=== PATIENT | female | born 1995 | race Two or more races ===

== ENCOUNTER 2020-09-09 11:41 | Outpatient (CLI) | payer OTHER | END 2020-09-09 12:12 | disposition home or self-care (01) | LOC: RX STUDY 11:41 → RAD 11:41 → RX STUDY 12:12 | PROVIDERS: ATTEND Surgery | DX: K59.09 Other constipation (principal); R10.32 Left lower quadrant pain ==

== ENCOUNTER 2020-09-17 08:29 | Outpatient (CLI) | payer OTHER | END 2020-09-17 08:47 | disposition HB | LOC: TOM 08:29 | DX: K59.89 Other specified functional intestinal disorders (principal); Z12.11 Encounter for screening for malignant neoplasm of colon ==

== ENCOUNTER 2020-09-30 07:00 | Day surgery (SDC) | payer OTHER | END 2020-09-30 10:55 | disposition home or self-care (01) | LOC: CIR.AMB 07:00 | PROVIDERS: ATTEND Surgery | DX: K59.09 Other constipation (principal); N81.6 Rectocele; Z20.822 Contact with and (suspected) exposure to COVID-19 ==